=== PATIENT | female | born 1985 | race Caucasian/White ===

== ENCOUNTER 2024-11-05 05:21 | Emergency (ER) | payer SELFPAY ==
[2024-11-05] VITALS (17 sets, daily range): BP systolic 108–143; BP diastolic 53–94; PULSE 68–99; RESP 20; TEMP 36.4; O2SAT 95–100; BMI 35.9
[2024-11-05] MEDS: SODIUM CHLORIDE 0.9% 1,000 ML 1000 ML IV ×2 (05:38→07:30)
[2024-11-05] MEDS: ONDANSETRON 4 MG/2 ML INJ IV (05:39)
[2024-11-05] MEDS: PANTOPRAZOLE 40 MG VIAL IV (05:48)
--- NOTE | 2024-11-05 05:52 | ED_ITS ---
HPI - Nausea/Vomiting/Diarrhea <Sharath Vickers MD - Last Filed: 11/05/24 19:55> General Chief complaint: Nausea/Vomiting/Diarrhea Stated complaint: vomiting Time Seen by Provider: 11/05/24 05:34 Source: patient Mode of arrival: EMS History of Present Illness HPI Narrative: 39-year-old female admits to recent alcohol binge drinking, 7 shots of alcohol yesterday, this morning having nausea and vomiting, repeated episodes of nonbloody emesis. No black or red stools. No history of known peptic ulcer disease, no history of prior pancreatitis. No blunt trauma or injuries. Related Data Allergies Allergy/AdvReac Type Severity Reaction Status Date / Time No Known Drug Allergies Allergy Verified 11/05/24 05:29 Exam <Sharath Vickers MD - Last Filed: 11/05/24 19:55> Narrative Exam Narrative: GENERAL: Well-developed patient, in mild distress. Frequent retching. HEAD: Atraumatic. Normocephalic. EYES: Pupils equal round and reactive. Extraocular motions intact. No scleral icterus. No injection or drainage. ENT: Nose without bleeding, purulent drainage. Throat without erythema, tonsillar hypertrophy or exudate. Airway patent. NECK: Trachea midline. Non tender CARDIOVASCULAR: Regular rate and rhythm without murmurs, gallops, or rubs. RESPIRATORY: Clear to auscultation. Breath sounds equal bilaterally. No wheezes, rales, or rhonchi. GASTROINTESTINAL: Abdomen soft, non-tender, nondistended. EXTREMITIES: No edema or joint tenderness. BACK: Nontender without deformity or crepitance. No flank tenderness. NEURO: AOx3. Motor functions grossly nonfocal. SKIN: No rash or erythema of visible areas Initial Vital Signs Initial Vital Signs: Vital Signs Temperature 97.6 F 11/05/24 05:24 Pulse Rate 87 11/05/24 05:24 Respiratory Rate 20 11/05/24 05:24 Blood Pressure 117/72 11/05/24 05:24 Pulse Oximetry 100 11/05/24 05:24 Oxygen Delivery Method Room Air 11/05/24 05:24 <Demetra Kramer DO - Last Filed: 11/05/24 15:21> Initial Vital Signs Initial Vital Signs: Vital Signs Temperature 97.6 F 11/05/24 05:24 Pulse Rate 87 11/05/24 05:24 Respiratory Rate 20 11/05/24 05:24 Blood Pressure 117/72 11/05/24 05:24 Pulse Oximetry 100 11/05/24 05:24 Oxygen Delivery Method Room Air 11/05/24 05:24 Course <Sharath Vickers MD - Last Filed: 11/05/24 19:55> Orders Ordered: Discontinued Medications Al Hydrox/Mg Hydrox/Simethicone (Mag Hydrox/Alum/Simeth 30 Ml Udc) 30 ml PO NOW ONE Stop: 11/05/24 06:42 Last Admin: 11/05/24 06:54 Dose: 30 ml Documented By: LCINT Sodium Chloride (Normal Saline 0.9%) 1,000 mls @ 1,000 mls/hr IV BOLUS ONE Stop: 11/05/24 06:34 Last Infusion: 11/05/24 06:56 Dose: Infused Documented By: Admin: 11/05/24 05:38 Dose: 1,000 mls/hr Documented By: CLINT Sodium Chloride (Normal Saline 0.9%) 1,000 mls @ 1,000 mls/hr IV BOLUS ONE Stop: 11/05/24 07:54 Last Infusion: 11/05/24 08:41 Dose: Infused Documented By: Admin: 11/05/24 07:30 Dose: 1,000 mls/hr Documented By: CHUY Sodium Chloride (Normal Saline 0.9%) 1,000 mls @ 1,000 mls/hr IV BOLUS ONE Stop: 11/05/24 08:28 Last Admin: 11/05/24 08:42 Dose: Not Given Documented By: CHUY Ondansetron HCl (Ondansetron 4 Mg/2 Ml Inj) 4 mg IV NOW ONE Stop: 11/05/24 05:35 Last Admin: 11/05/24 05:39 Dose: 4 mg Documented By: CLINT Pantoprazole Sodium (Pantoprazole 40 Mg Vial) 40 mg IV NOW ONE Stop: 11/05/24 05:35 Last Admin: 11/05/24 05:48 Dose: 40 mg Documented By: CLINT Vital Signs Vital signs: Vital Signs - 8 hr 11/05/24 07:30 11/05/24 07:42 11/05/24 07:42 Pulse Rate 92 H 73 Blood Pressure 128/63 Pulse Oximetry 98 100 11/05/24 08:00 11/05/24 08:00 11/05/24 08:30 Pulse Rate 82 Blood Pressure 117/54 L 108/53 L Pulse Oximetry 99 11/05/24 08:30 11/05/24 09:00 11/05/24 09:00 Pulse Rate 90 92 H Blood Pressure 143/69 H Pulse Oximetry 95 99 11/05/24 09:30 11/05/24 09:31 11/05/24 09:31 Pulse Rate 99 H 96 H Blood Pressure 126/94 H Pulse Oximetry 98 99 11/05/24 10:00 11/05/24 10:00 11/05/24 10:30 Pulse Rate 91 H 88 Blood Pressure 129/60 Pulse Oximetry 97 96 11/05/24 10:30 Pulse Rate Blood Pressure 127/61 Pulse Oximetry <Demetra Kramer, DO - Last Filed: 11/05/24 15:21> Orders Ordered: Discontinued Medications Al Hydrox/Mg Hydrox/Simethicone (Mag Hydrox/Alum/Simeth 30 Ml Udc) 30 ml PO NOW ONE Stop: 11/05/24 06:42 Last Admin: 11/05/24 06:54 Dose: 30 ml Documented By: CLINT Sodium Chloride (Normal Saline 0.9%) 1,000 mls @ 1,000 mls/hr IV BOLUS ONE Stop: 11/05/24 06:34 Last Infusion: 11/05/24 06:56 Dose: Infused Documented By: Admin: 11/05/24 05:38 Dose: 1,000 mls/hr Documented By: CLINT Sodium Chloride (Normal Saline 0.9%) 1,000 mls @ 1,000 mls/hr IV BOLUS ONE Stop: 11/05/24 07:54 Last Infusion: 11/05/24 08:41 Dose: Infused Documented By: Admin: 11/05/24 07:30 Dose: 1,000 mls/hr Documented By: CHUY Sodium Chloride (Normal Saline 0.9%) 1,000 mls @ 1,000 mls/hr IV BOLUS ONE Stop: 11/05/24 08:28 Last Admin: 11/05/24 08:42 Dose: Not Given Documented By: CHUY Ondansetron HCl (Ondansetron 4 Mg/2 Ml Inj) 4 mg IV NOW ONE Stop: 11/05/24 05:35 Last Admin: 11/05/24 05:39 Dose: 4 mg Documented By: CLINT Pantoprazole Sodium (Pantoprazole 40 Mg Vial) 40 mg IV NOW ONE Stop: 11/05/24 05:35 Last Admin: 11/05/24 05:48 Dose: 40 mg Documented By: CLINT Vital Signs Vital signs: Vital Signs - 8 hr 11/05/24 07:30 11/05/24 07:42 11/05/24 07:42 Pulse Rate 92 H 73 Blood Pressure 128/63 Pulse Oximetry 98 100 11/05/24 08:00 11/05/24 08:00 11/05/24 08:30 Pulse Rate 82 Blood Pressure 117/54 L 108/53 L Pulse Oximetry 99 11/05/24 08:30 11/05/24 09:00 11/05/24 09:00 Pulse Rate 90 92 H Blood Pressure 143/69 H Pulse Oximetry 95 99 11/05/24 09:30 11/05/24 09:31 11/05/24 09:31 Pulse Rate 99 H 96 H Blood Pressure 126/94 H Pulse Oximetry 98 99 11/05/24 10:00 11/05/24 10:00 11/05/24 10:30 Pulse Rate 91 H 88 Blood Pressure 129/60 Pulse Oximetry 97 96 11/05/24 10:30 Pulse Rate Blood Pressure 127/61 Pulse Oximetry MDM - Nausea/Vomiting/Diarrhea <Sharath Vickers MD - Last Filed: 11/05/24 19:55> Lab Data Attestation: I reviewed the patient's lab results. Lab results narrative: White blood cell count 61587, hemoglobin 13.1, platelets adequate. Glucose 136, renal function normal. Serum CO2 19 decreased. Serum potassium 3.3 mildly decreased, serum sodium normal. Liver functions and lipase normal. HCG negative. Alcohol level negative. 11/05/24 06:25 11/05/24 06:25 Labs: Lab Results 11/05/24 11/05/24 11/05/24 Range/Units 06:25 06:35 08:41 WBC 21.4 H (4.5-11.0) X10^3/uL RBC 4.59 (4.0-5.2) X10^6/uL Hgb 13.1 (12.0-16.0) g/dL Hct 39.5 (36-46) % MCV 86.2 (80-100) fL MCH 28.5 (26-34) PG MCHC 33.0 (30-36) % RDW 14.4 (11.6-14.8) % Plt Count 225 (150-400) X10^3/uL Neut % (Auto) 89.7 H (50-75) % Lymph % (Auto) 5.5 L (25-40) % Boyle % (Auto) 4.6 (3-14) % Eos % (Auto) 0.0 L (2-4) % Baso % (Auto) 0.2 (0-2) % Neut # (Auto) 89298 H (6460-6914) /uL Lymph # (Auto) 1200 (1588-4787) /uL Boyle # (Auto) 1000 H (0-900) /uL Eos # (Auto) 0 (0-450) /uL Baso # (Auto) 100 (0-100) /uL PT 12.3 (9.4-12.5) SECONDS INR 1.1 (0.9-1.3) Sodium 142 (137-145) mmol/L Potassium 3.3 L (3.4-5.1) mmol/L Chloride 109 H (98-107) mmol/L Carbon Dioxide 19 L (22-32) mmol/L BUN 9 (7-17) mg/dL Creatinine 0.58 (0.52-1.04) mg/dL Estimated GFR > 60 (>60) mL/min BUN/Creatinine Ratio 15.5 (6-22) Glucose 136 H (70-99) mg/dL Lactate 3.9 H 3.1 H (0.7-2.1) mmol/L Calcium 8.6 (8.4-10.2) mg/dL Total Bilirubin 0.5 (0.2-1.3) mg/dL AST 36 (14-36) IU/L ALT 27 (<35) IU/L Alkaline Phosphatase 109 (38-126) U/L Total Protein 7.3 (6.3-8.2) g/dL Albumin 4.4 (3.5-5.0) g/dL Globulin 2.9 (1.7-4.1) g/dL Albumin/Globulin Ratio 1.5 (1.0-2.8) Lipase 19 L (23-300) U/L Procalcitonin 0.031 (<0.5) ng/mL HCG, Quant < 2.39 < 2.39 mIU/mL Ethyl Alcohol < 10 (<10) mg/dL [facility] Narrative Medical decision making narrative: 39-year-old female with alcohol binge drinking yesterday, nausea or vomiting, no significant tenderness exam. Noted to be retching. Moves neck well, no photophobia obvious. No craniofacial trauma obvious. Labs pending including hCG and blood alcohol level. DDx consider gastritis, PUD, pancreatitis, biliary colic, cholecystitis, colitis, diverticulitis, bowel obstruction, other. IV fluid bolus, IV Zofran, IV Protonix. Labs pending. Initial lab results: White blood cell count 51331, hemoglobin 13.1, platelets adequate. Glucose 136, renal function normal. Serum CO2 19 decreased. Serum potassium 3.3 mildly decreased, serum sodium normal. Liver functions and lipase normal. HCG negative. Alcohol level negative. Lactate 3.9 elevated. 0700, recent alcohol binge drinking, frequent vomiting, leukocytosis, lactate elevated, consider sepsis, could be dehydration only, IV fluid bolus ordered, repeat lactate pending. CT abdomen and pelvis ordered. Signed out to [facility] ED shift physician Dr. Kramer. <Demetra Kramer, DO - Last Filed: 11/05/24 15:21> Lab Data Labs: Lab Results 11/05/24 11/05/24 11/05/24 Range/Units 06:25 06:35 08:41 WBC 21.4 H (4.5-11.0) X10^3/uL RBC 4.59 (4.0-5.2) X10^6/uL Hgb 13.1 (12.0-16.0) g/dL Hct 39.5 (36-46) % MCV 86.2 (80-100) fL MCH 28.5 (26-34) PG MCHC 33.0 (30-36) % RDW 14.4 (11.6-14.8) % Plt Count 225 (150-400) X10^3/uL Neut % (Auto) 89.7 H (50-75) % Lymph % (Auto) 5.5 L (25-40) % Boyle % (Auto) 4.6 (3-14) % Eos % (Auto) 0.0 L (2-4) % Baso % (Auto) 0.2 (0-2) % Neut # (Auto) 11480 H (1887-3581) /uL Lymph # (Auto) 1200 (6427-4606) /uL Boyle # (Auto) 1000 H (0-900) /uL Eos # (Auto) 0 (0-450) /uL Baso # (Auto) 100 (0-100) /uL PT 12.3 (9.4-12.5) SECONDS INR 1.1 (0.9-1.3) Sodium 142 (137-145) mmol/L Potassium 3.3 L (3.4-5.1) mmol/L Chloride 109 H (98-107) mmol/L Carbon Dioxide 19 L (22-32) mmol/L BUN 9 (7-17) mg/dL Creatinine 0.58 (0.52-1.04) mg/dL Estimated GFR > 60 (>60) mL/min BUN/Creatinine Ratio 15.5 (6-22) Glucose 136 H (70-99) mg/dL Lactate 3.9 H 3.1 H (0.7-2.1) mmol/L Calcium 8.6 (8.4-10.2) mg/dL Total Bilirubin 0.5 (0.2-1.3) mg/dL AST 36 (14-36) IU/L ALT 27 (<35) IU/L Alkaline Phosphatase 109 (38-126) U/L Total Protein 7.3 (6.3-8.2) g/dL Albumin 4.4 (3.5-5.0) g/dL Globulin 2.9 (1.7-4.1) g/dL Albumin/Globulin Ratio 1.5 (1.0-2.8) Lipase 19 L (23-300) U/L Procalcitonin 0.031 (<0.5) ng/mL HCG, Quant < 2.39 < 2.39 mIU/mL Ethyl Alcohol < 10 (<10) mg/dL [facility] Narrative Medical decision making narrative: 39-year-old female with alcohol binge drinking yesterday, nausea or vomiting, no significant tenderness exam. Noted to be retching. Moves neck well, no photophobia obvious. No craniofacial trauma obvious. Labs pending including hCG and blood alcohol level. DDx consider gastritis, PUD, pancreatitis, biliary colic, cholecystitis, colitis, diverticulitis, bowel obstruction, other. IV fluid bolus, IV Zofran, IV Protonix. Labs pending. Initial lab results: White blood cell count 09546, hemoglobin 13.1, platelets adequate. Glucose 136, renal function normal. Serum CO2 19 decreased. Serum potassium 3.3 mildly decreased, serum sodium normal. Liver functions and lipase normal. HCG negative. Alcohol level negative. Lactate 3.9 elevated. 0700, recent alcohol binge drinking, frequent vomiting, leukocytosis, lactate elevated, consider sepsis, could be dehydration only, IV fluid bolus ordered, repeat lactate pending. CT abdomen and pelvis ordered. Signed out to oncoming ED shift physician Dr. Kramer. 11/05/24 Dr. Kramer: Patient signed out to myself. Patient reports binge drinking overnight does normally has a about 3 drinks daily had quite a bit of vomiting overnight patient had received medications in his feeling much improved at this point. [place] [address] but possibly reactive lactate was 3.9. Hemoglobin is 13 platelets are appropriate potassium slightly low at 3.3 electrolytes, LFTs were otherwise appropriate. HCG is negative. ETOH is negative. Patient does not appear to have any withdrawal symptoms. CT abdomen pelvis has been obtained shows a pulmonary nodule, few distended loops of small bowel in the left upper abdomen could represent small bowel enteritis or ileus. Normal appendix no hydronephrosis. Left lower lobe incidental pulmonary nodule measuring 0.6 cm consider follow up chest CT at 6-12 months. Patient had 2 L of fluids, GI cocktail, pantoprazole, Zofran. Patient is feeling improved. She is slightly hoarse on her initial evaluation by myself as well as on repeat but she states overall she is feeling improved, she states her throat feels little raw from all of the vomiting. She had abdominal pain is much better she has not had any persistent vomiting. Repeat lactate is a little elevated at 3.1 but improving. Overall patient feels much better and feels that she is ready for discharge. Discussed return precautions. All questions answered. Reviewed all of her findings today as well as her need for follow up for the pulmonary nodule. Patient expresses understanding. Discharge Plan Departure Patient Disposition: Home Clinical Impression: Acute alcoholic gastritis, Nausea & vomiting, Pulmonary nodule Instructions: DI for Vomiting -- Adult Activity Restrictions/Additional Instructions: Your imaging shows incidentally a pulmonary nodule that is 0.6 cm in the left lower lobe. Talk with your physician about having follow up chest CT in 6-12 months. Please return if you have new or worsening symptoms fevers, persistent vomiting, new abdominal back or flank pain or any other new or concerning changes. Stand Alone Forms: Patient Portal/API
[2024-11-05 06:33] LABS: Add Manual Diff / Slide Review NO; Hematocrit 39.5 % (36-46); Hemoglobin 13.1 g/dL (12.0-16.0); Lymphocytes Absolute Auto 1200 /uL (1100-4500); Mean Corpuscular HGB Conc 33.0 % (30-36); Mean Corpuscular Hemoglobin 28.5 PG (26-34); Mean Corpuscular Volume 86.2 fL (80-100); Platelet Count 225 X10^3/uL (150-400)
[2024-11-05 06:42] LABS: INR 1.1 (0.9-1.3); Prothrombin Time 12.3 SECONDS (9.4-12.5)
[2024-11-05 06:46] LABS: Ethanol (ETOH) < 10 mg/dL (<10)
[2024-11-05 06:48] LABS: Alanine Aminotransferase 27 IU/L (<35); Albumin 4.4 g/dL (3.5-5.0); Albumin Globulin Ratio 1.5 (1.0-2.8); Alkaline Phosphatase 109 U/L (38-126); Blood Urea Nitrogen 9 mg/dL (7-17); Calcium 8.6 mg/dL (8.4-10.2); Carbon Dioxide 19 mmol/L (22-32); Chloride 109 mmol/L (98-107); Estimated Glomerular Filt Rate > 60 mL/min (>60); Globulin 2.9 g/dL (1.7-4.1); Glucose 136 mg/dL (70-99); HEMOLYSIS 29 (0-50); Lipase 19 U/L (23-300); Potassium 3.3 mmol/L (3.4-5.1); Sodium 142 mmol/L (137-145); Total Protein 7.3 g/dL (6.3-8.2)
[2024-11-05] MEDS: MAG HYDROX/ALUM/SIMETH 30 ML UDC PO (06:54)
--- NOTE | 2024-11-05 06:59 | DI.CT.S_ITS ---
PROCEDURE: CT ABDOMEN PELVIS W CON INDICATIONS: abd pain, WBC 21k TECHNIQUE: After the administration of intravenous contrast, axial sections acquired from the lung bases to the pubic symphysis. Coronal and sagittal reformats were performed. For radiation dose reduction, the following was used: automated exposure control, adjustment of mA and/or kV according to patient size. COMPARISON: None. FINDINGS: Image quality: Diagnostic. Lower Chest: Left lower lobe subpleural pulmonary nodule measuring mean diameter 0.6 cm, (5/11). No pleural effusion. ABDOMEN: Liver: No solid mass. Right liver is prominent. Gallbladder: No radiopaque gallstones or wall thickening. Biliary ducts: No biliary dilation. Pancreas: No ductal dilation. Spleen: Size is within normal limits. Measures 11.5 cm. Adrenal Glands: No adrenal nodules. Kidneys and Ureters: No hydronephrosis. No kidney stones identified. No solid mass. No complex renal cystic lesion which requires follow up. Stomach and Bowel: Stomach is not distended. Duodenum is not distended. Proximal small bowel is distended, (3/49). Other small bowel is unremarkable. No transition point to suggest obstruction. No diverticulitis. Normal appendix. Peritoneum: No abnormal intraperitoneal fluid. No free air. Ventral Wall: No significant ventral hernia. Abdominal Nodes: No retroperitoneal or mesenteric adenopathy by size criteria. Vessels: Aorta and inferior vena cava are normal in size. PELVIS: Pelvic Organs: Anteverted uterus. Scant free fluid in the pelvis. Bladder: No bladder wall thickening. No stone. Pelvic Nodes: No enlarged lymph nodes. Miscellaneous: No inguinal hernias are seen. Bones: No aggressive osseous abnormality. Bilateral L5 pars defect. Anterolisthesis of L5 on S1 measuring 0.9 cm. IMPRESSION: 1. A few distended loops of small bowel in the left upper abdomen. This could represent a small bowel enteritis or ileus. 2. Normal appendix. No hydronephrosis. 3. Left lower lobe incidental pulmonary nodule measuring 0.6 cm. -Consider follow-up chest CT in 6-12 months. Dictated by: Jim Doran M.D. on 11/05/2024 at 7:54 Approved by: Jim Doran M.D. on 11/05/2024 at 8:08
[2024-11-05 07:04] LABS: HCG Quantitative /Beta subunit < 2.39 mIU/mL
[2024-11-05 07:15] LABS: Lactate (Lactic Acid) 3.9 mmol/L (0.7-2.1)
[2024-11-05 07:32] LABS: HCG Quantitative /Beta subunit < 2.39 mIU/mL; Procalcitonin 0.031 ng/mL (<0.5)
[2024-11-05 08:35] LABS: Reflexed Lactate in 2 Hours Y
[2024-11-05 09:50] LABS: Lactate 2HR (Lactic Acid Rflx) 3.1 mmol/L (0.7-2.1)
== END 2024-11-05 10:51 | disposition home or self-care (01) ==
PROVIDERS: Emergency Medicine; Emergency Provider Emergency Medicine
DX: K29.20 Alcoholic gastritis without bleeding (principal); R11.2 Nausea with vomiting, unspecified; R91.1 Solitary pulmonary nodule
CPT/HCPCS: 36415; 74177; 80053; 80320; 83605; 83690; 84145; 84702; 85025; 85610; 96361; 96374; 96375; 99284; J2405; J2470; Q9967